=== PATIENT | male | born 1950 | race Two or more races ===

== ENCOUNTER 2018-08-17 06:38 | Outpatient (CLI) | payer OTHER ==
[~2018-08-17 06:38] MED LIST: ACID CONTROL75 MG PO; ALBUTEROL17 G1 IH; ALBUTEROL17 GM IH; CLARINEX-D 11 BOTTLE PO; FLOVENT DI50 MCG/DIS IH; FLOVENT13 G1 IH; ZOCOR5 MG PO
== END 2018-08-17 06:40 | disposition home or self-care (01) ==
LOC: LAB 06:38
DX: D64.89 Other specified anemias (principal); N39.0 Urinary tract infection, site not specified; R10.84 Generalized abdominal pain; E03.8 Other specified hypothyroidism; E55.9 Vitamin D deficiency, unspecified; R80.8 Other proteinuria; E11.9 Type 2 diabetes mellitus without complications; E78.2 Mixed hyperlipidemia; I11.9 Hypertensive heart disease without heart failure; E56.8 Deficiency of other vitamins

== ENCOUNTER 2018-09-26 07:42 | Outpatient (CLI) | payer OTHER | END 2018-09-26 07:48 | disposition home or self-care (01) | LOC: LAB 07:42 | DX: N40.0 Benign prostatic hyperplasia without lower urinary tract symptoms (principal) ==

== ENCOUNTER 2018-11-02 09:36 | Outpatient (CLI) | payer OTHER | END 2018-11-02 09:48 | disposition home or self-care (01) | LOC: RAD 09:36 | DX: M54.6 Pain in thoracic spine (principal) ==

== ENCOUNTER 2018-12-14 11:07 | Outpatient (CLI) | payer OTHER | END 2018-12-14 11:32 | disposition home or self-care (01) | LOC: LAB 11:07 | DX: D64.89 Other specified anemias (principal); J18.0 Bronchopneumonia, unspecified organism ==

== ENCOUNTER 2019-04-11 09:21 | Outpatient (CLI) | payer OTHER | END 2019-04-11 09:29 | disposition home or self-care (01) | LOC: TOM 09:21 | DX: K57.32 Diverticulitis of large intestine without perforation or abscess without bleeding (principal) ==

== ENCOUNTER 2019-04-18 06:24 | Outpatient (CLI) | payer OTHER | END 2019-04-18 09:21 | disposition home or self-care (01) | LOC: LAB 06:24 | DX: D64.89 Other specified anemias (principal); E11.9 Type 2 diabetes mellitus without complications; E03.8 Other specified hypothyroidism; E78.2 Mixed hyperlipidemia; Z12.11 Encounter for screening for malignant neoplasm of colon; N39.0 Urinary tract infection, site not specified; R97.0 Elevated carcinoembryonic antigen [CEA] ==

== ENCOUNTER 2019-12-12 10:39 | Outpatient (CLI) | payer OTHER | END 2019-12-12 10:44 | disposition home or self-care (01) | LOC: RAD 10:39 | DX: J45.901 Unspecified asthma with (acute) exacerbation (principal) ==

== ENCOUNTER 2020-06-06 07:18 | Outpatient (CLI) | payer OTHER, BC | END 2020-06-06 07:25 | disposition home or self-care (01) | LOC: LAB 07:18 | PROVIDERS: ATTEND Internal Medicine | DX: E03.8 Other specified hypothyroidism (principal); R10.84 Generalized abdominal pain; N39.0 Urinary tract infection, site not specified; I10 Essential (primary) hypertension; E78.49 Other hyperlipidemia; D64.89 Other specified anemias; E55.9 Vitamin D deficiency, unspecified; N40.0 Benign prostatic hyperplasia without lower urinary tract symptoms; E11.9 Type 2 diabetes mellitus without complications ==

== ENCOUNTER 2020-08-06 07:28 | Outpatient (CLI) | payer OTHER, BC | END 2020-08-06 07:53 | disposition home or self-care (01) | LOC: LAB 07:28 | PROVIDERS: ATTEND Internal Medicine Cardiovascular Disease | DX: D64.89 Other specified anemias (principal); L50.0 Allergic urticaria; J30.89 Other allergic rhinitis; D72.19 Other eosinophilia; J45.20 Mild intermittent asthma, uncomplicated; N39.0 Urinary tract infection, site not specified; R10.84 Generalized abdominal pain; E03.8 Other specified hypothyroidism; E78.49 Other hyperlipidemia; E55.9 Vitamin D deficiency, unspecified; E11.9 Type 2 diabetes mellitus without complications; I10 Essential (primary) hypertension ==

== ENCOUNTER → 2021-01-16 06:57 | Outpatient (CLI) | payer OTHER | END | disposition home or self-care (01) | LOC: LAB 06:57 | PROVIDERS: ATTEND Internal Medicine | DX: E03.8 Other specified hypothyroidism (principal); N40.0 Benign prostatic hyperplasia without lower urinary tract symptoms; N39.8 Other specified disorders of urinary system; D64.89 Other specified anemias; R10.84 Generalized abdominal pain; R07.89 Other chest pain; E55.9 Vitamin D deficiency, unspecified; R73.09 Other abnormal glucose; I10 Essential (primary) hypertension; E78.2 Mixed hyperlipidemia; R06.00 Dyspnea, unspecified ==

== ENCOUNTER → 2021-08-05 07:20 | Outpatient (CLI) | payer OTHER | END | disposition home or self-care (01) | LOC: LAB 07:20 | PROVIDERS: ATTEND Internal Medicine Cardiovascular Disease | DX: I10 Essential (primary) hypertension (principal); D64.89 Other specified anemias; N39.0 Urinary tract infection, site not specified; R10.84 Generalized abdominal pain; E03.8 Other specified hypothyroidism; E55.9 Vitamin D deficiency, unspecified; E11.9 Type 2 diabetes mellitus without complications; E78.2 Mixed hyperlipidemia; Z13.6 Encounter for screening for cardiovascular disorders ==

== ENCOUNTER 2021-09-09 07:21 | Outpatient (CLI) | payer OTHER | END 2021-09-09 07:34 | disposition home or self-care (01) | LOC: LAB 07:21 | PROVIDERS: ATTEND Internal Medicine Cardiovascular Disease | DX: D64.89 Other specified anemias (principal); R10.84 Generalized abdominal pain; I10 Essential (primary) hypertension; I25.89 Other forms of chronic ischemic heart disease ==

== ENCOUNTER 2022-11-06 09:26 | Outpatient (CLI) | payer OTHER | END 2022-11-06 09:37 | disposition home or self-care (01) | LOC: RAD 09:26 | PROVIDERS: ATTEND Internal Medicine | DX: M54.2 Cervicalgia (principal) ==

== ENCOUNTER → 2023-05-24 07:02 | Outpatient (CLI) | payer OTHER | END | disposition home or self-care (01) | LOC: LAB 07:02 | PROVIDERS: ATTEND Internal Medicine | DX: D64.9 Anemia, unspecified (principal); I10 Essential (primary) hypertension; R73.9 Hyperglycemia, unspecified; E78.2 Mixed hyperlipidemia; E03.8 Other specified hypothyroidism; N39.0 Urinary tract infection, site not specified; N40.0 Benign prostatic hyperplasia without lower urinary tract symptoms; M19.90 Unspecified osteoarthritis, unspecified site; E72.11 Homocystinuria; Z12.11 Encounter for screening for malignant neoplasm of colon ==

== ENCOUNTER 2025-02-19 06:47 | Outpatient (CLI) | payer OTHER ==
[2025-02-19 07:51] LABS: HEMOGLOBIN 13.8 g/dL (13-16.00); MEAN CELL VOLUME 86.2 fL (80.0-100.00); MEAN CORPUSCULAR HEMOGLOBIN 29.1 pg (27.00-32.0); MEAN CORPUSCULAR HGB CONC 33.7 g/dl (32.0-36.0); PLATELET COUNT 292 K/uL (150-450); RED BLOOD COUNT 4.76 M/uL (4.00-6.00); RED CELL DISTRIBUTION WIDTH 13.7 % (11.5-14.5)
[2025-02-19 07:59] LABS: PH,URINE 5.5 (5.0-8.0); URINE APPEARANCE Clear; URINE BILIRRUBIN Negative (NEGATIVE); URINE BLOOD Negative; URINE COLOR Yellow; URINE GLUCOSE Negative (NEGATIVE); URINE KETONE Negative (NEGATIVE); URINE LEUKOCYTE Negative; URINE NITRATE Negative; URINE PROTEIN Negative (NEGATIVE); URINE UROBILINOGEN 0.2 E.U./dl
[2025-02-19 08:22] LABS: URINE BACTERIA 2.4 uL (0.0-1933)
[2025-02-19 08:37] LABS: ALBUMIN 3.6 gm/dL (3.4-5.0); BILIRUBIN TOTAL 0.95 mg/dL (0.3-1.2); CALCIUM 9.3 mg/dL (8.5-10.1); CREATININE SERUM 1.19 mg/dL (0.70-1.30); GFR 59.59; GLOBULINA 2.9 G/DL (2.4-3.5); POTASSIUM 4.56 mEq/L (3.5-5.1); PROSTATIC SPECIFIC ANTIGEN 0.575 NG/ML (0.010-4.00); T4 FREE 1.21 NG/ML (0.76-1.46); TOTAL PROTEIN 6.5 gm/dL (6.4-8.2); TSH 1.15 uIU/mL (0.358-3.74)
== END 2025-02-19 06:49 | disposition home or self-care (01) ==
LOC: LAB 06:47
PROVIDERS: ATTEND Internal Medicine
DX: D64.9 Anemia, unspecified (principal); I10 Essential (primary) hypertension; E11.9 Type 2 diabetes mellitus without complications; E55.9 Vitamin D deficiency, unspecified; E03.8 Other specified hypothyroidism; N39.0 Urinary tract infection, site not specified; K92.1 Melena; N40.0 Benign prostatic hyperplasia without lower urinary tract symptoms; E78.2 Mixed hyperlipidemia